=== PATIENT | male | born 1990 | race Caucasian/White ===

== ENCOUNTER 2017-01-19 17:09 | Emergency (ER) | payer MEDICAID ==
[~2017-01-19] VITALS: Ht 177.8 cm; Wt 103.6 kg
[2017-01-19 19:27] VITALS: BP 143/99
== END 2017-01-19 20:38 | disposition home or self-care (01) ==
LOC: EMS 17:15
DX: I10 Essential (primary) hypertension (principal); F17.210 Nicotine dependence, cigarettes, uncomplicated
CPT/HCPCS: 99281; 99406